=== PATIENT | male | born 1990 | race Caucasian/White ===

== ENCOUNTER 2017-09-27 21:09 | Emergency (ER) | payer OTHER ==
[~2017-09-27] VITALS: Ht 188 cm; Wt 70.3 kg
[2017-09-27] MEDS ORDERED: PAZEO2.5 ML (23:58)
[2017-09-27] MEDS ORDERED: VITAMIN D250000 UNIT PO (23:59)
[2017-09-27] MEDS ORDERED: FLUOXETINE20 MG/5 ML (23:59)
[2017-09-27] MEDS ORDERED: BENZACLIN GEL 550 GM (23:59)
--- NOTE | 2017-09-28 00:23 | ED INFLUENZA/URI COMPLAINT ---
History of Present Illness General Chief Complaint: Upper Respiratory Sx/Fever Stated Complaint: FEVER,SORE THROAT Source: patient, family, old records Exam Limitations: AUTISM Vital Signs & Intake/Output Vital Signs & Intake/Output Vital Signs Date Time Temp Pulse Resp B/P B/P Pulse O2 O2 Flow FiO2 Mean Ox Delivery Rate 09/28 0030 99.8 120 22 158/83 95 Room Air 09/27 2132 98.4 112 18 133/89 98 Room Air ED Intake and Output 09/28 0000 09/27 1200 Intake Total Output Total Balance Patient 155 lb Weight Weight Reported by Patient Measurement Method Allergies Uncoded Allergies: ENVIRONMENTAL (Intermediate, MILD 09/27/17) Reconcile Medications Amoxicillin 400 MG/5 ML SUSP.RECON 10 ML PO BID strep Clindamycin Phos/Benzoyl Perox (Benzaclin Gel 50G Pump) 1 %-5 % GEL.W.PUMP ALLERGIES (Reported) Ergocalciferol (Vitamin D2) (Vitamin D2) 50,000 UNIT CAPSULE 1 CAP PO QW VITAMIN SUPPORT (Reported) Fluoxetine HCl 20 MG/5 ML (4 MG/ML) SOLUTION DEPRESSION (Reported) Olopatadine HCl (Pazeo) (Unknown Strength) DROPS (Unknown Dose) ALLERGIES ( Reported) Oseltamivir Phosphate (Tamiflu) 6 MG/ML SUSP.RECON 12.5 ML PO BID influenza Triage Note: 26M PARENTS REPORT HE HAD A FEVER OF 101/102 TODAY AND SORE THROAT BUT PARENTS UNSURE IF THERMOMETER IS MILCALIBRATED. PT IS AUTISTIC AND EASILY AGITATED AND ANXIOUS. PARENTS REPORTS HE WAS DIAPHORETIC EARLIER. AFEBRILE IN TRIAGE Triage Nurses Notes Reviewed? yes Onset: Abrupt Duration: day(s): (1), constant Timing: recent history Severity: moderate Severity Numbers: 7 Prior Episodes/Possible Cause: no prior episodes No Modifying Factors: none Associated Symptoms: cough, fever/chills, muscle aches, nasal congestion, nasal drainage, sore throat HPI: 26-year-old male with history of autism presents with his parents for evaluation he states for the past one day he's had in her minute fevers as high as 102 associated with nonproductive cough generalized bodyaches sore throat rhinorrhea congestion. They've been giving him Motrin for the fevers. No sick contacts or recent travel. No modifying factors or associated symptoms otherwise. He did receive a flu shot this year (David Cain) Past History Travel History Traveled to [place] past 21 day No Medical History Any Pertinent Medical History? see below for history Neurological: AUTISM EENT: NONE Cardiovascular: NONE Respiratory: NONE Gastrointestinal: NONE Hepatic: NONE Renal: NONE Musculoskeletal: NONE Psychiatric: NONE Endocrine: NONE Surgical History Surgical History: none Psychosocial History What is your primary language Welsh Tobacco Use: Never used Family History Hx Contributory? No (David Cain) Review of Systems Review of Systems Constitutional: Reports: see HPI. Comments Review of systems: See HPI, All other systems negative. Constitutional, no chills no fever, HEENT: no sore throat no congestion Cardiovascular: No chest pain , Skin: no rashes, no change in skin Respiratory: No dyspnea no cough no sputum GI: No nausea no vomiting, no diarrhea, : No dysuria Muscle skeletal: No joint pain, no back pain Neurologic: , no headache Psych: No stress Heme/endocrine: No bruising (David Cain) Physical Exam Physical Exam General Appearance: well developed/nourished, no apparent distress, alert Ears, Nose, Throat: nasal congestion, PHARYNX ERYTHEMATOUS Comments: Well-developed well-nourished patient in no apparent distress. Head/Face: Atraumatic, no maxillary/frontal sinus tenderness, no facial swelling Eyes: PERRL, EOMI, no conjunctival injection.us Ear:External auditory canal and Tympanic membranes clear, no erythema, no FB. Nose: atraumatic.Normal inspection: No bleeding, Throat: Moist mucous membranes.pharynx is erythematous no exudate. No stridor/ drooling or assymetry. No swelling or edema. Neck: Supple, no lymphadenopathy, FROM Back: FROM Cardiovascular: Regular rate and rhythms no murmur Respiratory: No respiratory distress. Patient speaking in full complete sentences. Breath sounds clear to auscultation bilaterally: NO W/R/R Extremities: full range of motion Neuro: awake, alert, and oriented to person, place and time. There were no obvious focal neurologic abnormalities. Skin: Warm & dry;No appreciable rash on exposed skin Psych: Mood affect normal, normal memory normal judgment. Core Measures Sepsis Present: No Sepsis Focused Exam Completed? No (David Cain) Progress Differential Diagnosis: influenza, otitis, pneumonia, pharyngitis, sinusitis Plan of Care: Orders Procedure Date/time Status RAPID VIRAL INFLUENZA A 09/27 2121 Complete THROAT CULTURE W/QUICK STREP 09/27 2121 Complete I discussed with the patient and his family at length all of their results. I had an extensive conversation regarding need for close follow up with their primary care physician this week as well as return precautions. I answered all of their questions, they feel comfortable with the plan and follow-up care. I discussed with the patient/family the medications that they will receive. I gave them signs and symptoms that could indicate an adverse reaction. I have advised them to limit their activities until they can see how they respond to the medication. Initial ED EKG: none (David Cain) Departure Departure Time of Disposition: 33 Disposition: HOME OR SELF CARE Condition: Stable Clinical Impression Primary Impression: Influenza Secondary Impressions: Strep throat Referrals: Zoë Reynaga DO (PCP/Family) Additional Instructions: Amoxicillin and Tamiflu as directed drink plenty of fluids. Tylenol Motrin for pain or fevers. Follow up with his primary care physician this week return to emergency room anytime sooner with any concerns. Departure Forms: Customer Survey General Discharge Information Prescriptions: Current Visit Scripts Oseltamivir Phosphate (Tamiflu) 12.5 ML PO BID #125 ML Amoxicillin 10 ML PO BID #200 ML (David Cain) PA/CARPET CUTTER Co-Sign Statement Statement: ED Attending supervision documentation- [] I saw and evaluated the patient. I have also reviewed all the pertinent lab results and diagnostic results. I agree with the findings and the plan of care as documented in the PA's/CARPET CUTTER's documentation. [X] I have reviewed the ED Record and agree with the PA's/CARPET CUTTER's documentation. [] Additions or exceptions (if any) to the PAs/CARPET CUTTER's note and plan are summarized below: [] (Zahira FRANCISCO,Ankur Ardon)
[2017-09-28 00:30] VITALS: BP 158/83
[2017-09-28] MEDS ORDERED: AMOXICILLI400 MG/51 PO (00:36)
[2017-09-28] MEDS ORDERED: TAMIFLU6 MG/1 ML PO (00:36)
== END 2017-09-28 00:43 ==
LOC: ERH 21:09
DX: J11.1 Influenza due to unidentified influenza virus with other respiratory manifestations (principal); J02.0 Streptococcal pharyngitis
CPT/HCPCS: 87804; 87804-59